=== PATIENT | female | born 1935 | race African-American/Black ===

== ENCOUNTER 2019-03-18 12:21 | Inpatient (IN) | payer MEDICARE ==
[~2019-03-18] VITALS: Ht 157.5 cm; Wt 51.7 kg
--- NOTE | 2019-03-18 12:25 | NUR ---
SEEN AND EXAMINED BY DR. RODAS.
[2019-03-18] MEDS ORDERED: IV NS 0.9% 1,000 ML BAG IV ONE (12:30)
--- NOTE | 2019-03-18 12:33 | NUR ---
PT WHITNEY Juárez From [facility] "Fever x2days" PT IS AAOX0, NOT IN RESPIRATORY DISTRESS, HOOKED TO BEHAVIORAL HEALTH COUNSELOR, V/S STABLE, KEPT RESTED AND COMFORTABLE, WILL CONTINUE TO MONITOR.
--- NOTE | 2019-03-18 12:35 | NUR ---
IV LINE ESTABLISHED, LABS DRAWNED AND SENT TO LAB.
--- NOTE | 2019-03-18 12:40 | NUR ---
INFORMATION ASSOC AT BEDSIDE FOR XRAY.
[2019-03-18 12:44] LABS: BASOPHILS # (AUTO) 0.1 /CMM (0.0-0.2); BASOPHILS % (AUTO) 0.3 % (0.0-2.0); EOSINOPHILS % (AUTO) 0.1 % (0.0-6.0); HEMATOCRIT 23 % (33-45); HEMOGLOBIN 7.7 g/dL (11.5-14.8); LYMPHOCYTES # (AUTO) 1.3 /CMM (0.8-4.8); LYMPHOCYTES % (AUTO) 7.2 % (20.0-44.0); MEAN CORPUSCULAR HGB CONC 33 g/dl (31.0-36.0); MEAN CORPUSCULAR VOLUME 84 fL (82-100); MONOCYTES # (AUTO) 1.6 /CMM (0.1-1.30); NEUTROPHILS # (AUTO) 14.5 /CMM (1.8-8.9); NEUTROPHILS % (AUTO) 83.4 % (43.0-81.0); PLATELET COUNT (AUTO) 306 /CMM (150-450); RED BLOOD CELL COUNT(AUTO) 2.78 MIL/uL (4.0-5.2); WHITE BLOOD COUNT (AUTO) 17.4 K/uL (4.3-11.0)
[2019-03-18 12:53] LABS: CALCIUM, SERUM 8.9 mg/dL (8.5-10.1); CARBON DIOXIDE 26 mmol/L (21-32); CHLORIDE 97 mmol/L (98-107); CREATININE 0.9 mg/dL (0.6-1.3); GLUCOSE 265 mg/dL (74-106); POTASSIUM 6.1 mmol/L (3.5-5.1); SODIUM SERUM 130 mmol/L (136-145); UREA NITROGEN, BLOOD 35 mg/dL (7-18)
[2019-03-18 12:59] LABS: ALANINE AMINOTRANSFERASE 43 U/L (12-78); ALKALINE PHOSPHATASE 117 U/L (46-116); ASPARTATE AMINOTRANSFERASE 55 U/L (15-37); BILIRUBIN,TOTAL 0.4 mg/dL (0.2-1.0); TOTAL PROTEIN, SERUM 7.9 g/dL (6.4-8.2)
--- NOTE | 2019-03-18 13:14 | NUR ---
URINE SPECIMEN COLLECTED VIA STRAIGHT CATH AND SENT TO LAB.
[2019-03-18 13:26] LABS: APPEARANCE,URINE Cloudy (CLEAR); BILIRUBIN,URINE Negative (NEGATIVE); BLOOD, URINE Trace-intact Ery/uL (NEGATIVE); COLOR,URINE Yellow (YELLOW); KETONES,URINE Negative (NEGATIVE); LEUKOCYTE ESTERASE ,URINE Small (NEGATIVE); NITRITE, URINE Negative (NEGATIVE); PROTEIN,URINE Negative (NEGATIVE); UGLUCOSE 250 MG/DL mg/dL (NEGATIVE); UROBILINOGEN,URINE 0.2 EU/dL (0.2)
[2019-03-18 13:37] LABS: BACTERIA,URINE Moderate /HPF (None Seen); SQUAMOUS EPITHELIAL CELL,UR Many /HPF (None Seen)
[2019-03-18] MEDS ORDERED: MEMA10TA PO (13:48)
[2019-03-18] MEDS ORDERED: ACET650S13 RC (13:48)
[2019-03-18] MEDS ORDERED: AMLO10TA7 PO (13:48)
[2019-03-18] MEDS ORDERED: BISA10SU8 RC (13:48)
[2019-03-18] MEDS ORDERED: DONE5TAB34 PO (13:48)
[2019-03-18] MEDS ORDERED: INSU100I14 SQ (13:48)
[2019-03-18] MEDS ORDERED: LORA0.5T PO (13:48)
[2019-03-18] MEDS ORDERED: POLY255P19 PO (13:48)
[2019-03-18] MEDS ORDERED: IPRA3AMP23 IH ×2 (13:48)
[2019-03-18] MEDS ORDERED: HYOS0.1273 SL (13:48)
[2019-03-18] MEDS ORDERED: MORP10SO SL (13:48)
[2019-03-18] MEDS ORDERED: ACET325T80 PO (13:48)
[2019-03-18] MEDS ORDERED: TRAM50TA2 PO (13:48)
[2019-03-18] MEDS ORDERED: CLIN300C11 PO (13:48)
[2019-03-18] MEDS ORDERED: PROC25SU2 RC (13:48)
[2019-03-18] MEDS ORDERED: LACT1TAB20 PO (13:48)
[2019-03-18] MEDS ORDERED: ACET325T53 PO (13:48)
[2019-03-18] MEDS ORDERED: CEFTRIAXONE 1 G VIAL ONE (14:00)
[2019-03-18] MEDS ORDERED: CEFTRIAXONE 1GM BAG (ER ONLY) 50 ML IV ONE (14:00)
[2019-03-18] MEDS ORDERED: INSULIN REGULAR, HUMAN 100 UNIT/ML 10 ML VIAL IV ONE (14:30)
[2019-03-18] MEDS ORDERED: DEXTROSE 50%-WATER 50 ML DISP.SYRIN IV ONE (14:30)
[2019-03-18] MEDS ORDERED: ALBUTEROL FS 2.5 MG/3 ML VIAL.NEB NEB ONE (14:30)
[2019-03-18] MEDS ORDERED: SODIUM BICARBONATE SYR 50 MEQ/50 ML DISP.SYRIN IV ONE (14:30)
--- NOTE | 2019-03-18 15:10 | NUR ---
REPORT GIVEN TO TAMMY SELBY FOR [facility].
[2019-03-18] MEDS ORDERED: DEXTROSE 50%-WATER 50 ML DISP.SYRIN ONE (15:16)
[2019-03-18] MEDS ORDERED: SODIUM BICARBONATE SYR 50 MEQ/50 ML DISP.SYRIN ONE (15:16)
[2019-03-18] MEDS ORDERED: INSULIN REGULAR, HUMAN 100 UNIT/ML 10 ML VIAL ONE (15:16)
[2019-03-18] MEDS ORDERED: ALBUTEROL FS 2.5 MG/3 ML VIAL.NEB ONE (15:20)
--- NOTE | 2019-03-18 15:26 | NUR ---
RT AT BEDSIDE FOR BREATHING TREATMENT.
[2019-03-18 16:00] VITALS: BP 113/42
[2019-03-18] MEDS ORDERED: HYDROCODONE/APAP 10/325MG 1 EA TABLET PO PRN (16:00)
[2019-03-18] MEDS ORDERED: TRAMADOL HCL 50 MG TABLET PO PRN (16:00)
[2019-03-18] MEDS ORDERED: ONDANSETRON HCL/PF 4 MG/2 ML VIAL IVP PRN (16:00)
[2019-03-18] MEDS ORDERED: Z GUARD REMEDY 2 OZ OINT TP PRN (16:00)
[2019-03-18] MEDS ORDERED: DEXTROSE 50%-WATER 50 ML DISP.SYRIN IV PRN (16:00)
[2019-03-18] MEDS ORDERED: POLYETHYLENE GLYCOL 3350 17 GM POWD.PACK PO PRN (16:00)
[2019-03-18] MEDS ORDERED: LORAZEPAM 0.5 MG TABLET PO PRN (16:00)
[2019-03-18] MEDS ORDERED: ACETAMINOPHEN 325 MG TABLET PO PRN (16:00)
[2019-03-18] MEDS ORDERED: ENOXAPARIN SODIUM 40 MG/0.4 ML DISP.SYRIN SQ SCH (16:00)
[2019-03-18] MEDS ORDERED: HYOSCYAMINE SULFATE 0.125 MG TAB.SUBL SL PRN (16:00)
--- NOTE | 2019-03-18 16:30 | NUR ---
RN NOTE RECEIVED PT FROM ER ,ON BED, CONTRACTED, AOX0, NONVERBAL, FOLLOWS SOME SIMPLE VERBAL COMMANDS, ON ORDER TAKERS SUPERVISOR ST 115, SKIN WARM DRY, IV INTACT, DIAPER ON, LEFT AND RIGHT FEET WOUNDS AND SACRAL WOUND NOTED, PT ABLE TO TAKE PO INTAKE PER CAREGIVER. CONSERVATOR ANATT VISITED PT, GENERAL INTERNIST AND PHYSICIAN LEADER AT BEDSIDE, VS STABLE, SAFETY MEASURES IN PLACE, CALL LIGHT WITHIN REACH, WILL CONTINUE TO MONITOR.
[2019-03-18] MEDS: IV NS 0.9% 1,000 ML IV PRN (17:51)
[2019-03-18] MEDS: BLOOD SUGAR DIAGNOSTIC 1 EACH STRIP IN SCH ×2 (17:51→21:28)
[2019-03-18] MEDS: MEMANTINE HCL 5 MG TABLET PO SCH (17:55)
[2019-03-18] MEDS: INSULIN REGULAR, HUMAN 100 UNIT/ML 3 ML VIAL SQ PRN ×2 (17:57→21:29)
--- NOTE | 2019-03-18 19:40 | NUR ---
RN NOTES, RECEIVED PATIENT WITH EYES SEMI OPEN, BUT AROUSABLE TO VERBAL AND TACTILE STIMULI, NONVERBAL BUT NODS HEAD YES/NO TO SIMPLE QUESTIONS, AT RA BREATHING EVEN AND UNLABORED, NO S/S SOB/ ACUTE DISTRESS NOTED AT THIS TIME, SINUS TACHY IN THE EQUIPMENT PROCESSER STORAGE, HR 101 AT THIS TIME, IV ACCESS IN LEFT HAND, INFUSING 0.9% NS AT 100ML/HR, NO S/S OF INFILTRATION OR ABNORMALITY NOTED, INFUSING WELL AND PATIENT TOLERATED WELL, DRY AND CLEAN, ALL NEEDS PROVIDED, CAREGIVER AT BEDSIDE, BED LOCKED AND IN LOWEST POSITION, BILATERAL 1/2 S/R OF BED UP, CALL LIGHT W/I REACH, WILL CONTINUE TO MONITOR CLOSELY
[2019-03-18 20:00] VITALS: BP 129/43
[2019-03-19] VITALS: BP 126/52
[2019-03-19 04:00] VITALS: BP 108/42
[2019-03-19] MEDS: IV NS 0.9% 1,000 ML IV PRN (04:45)
--- NOTE | 2019-03-19 06:51 | NUR ---
RN NOTES, PATIENT SLEEPING AT THIS TIME, BUT AROUSABLE TO VERBAL AND TACTILE STIMULI, NONVERBAL PER REPORT,BUT PATIENT ABLE TO SAY SOME WORDS AND ALSO NODS HEAD YES/NO TO SIMPLE QUESTIONS, AT RA BREATHING EVEN AND UNLABORED, NO S/S SOB/ ACUTE DISTRESS NOTED DURING THE NIGHT, AND NO SIGNIFICANT CHNAGE IN CONDITION, IV ACCESS IN LEFT HAND, INFUSING 0.9% NS AT 100ML/HR, NO S/S OF INFILTRATION OR ABNORMALITY NOTED, INFUSING WELL AND PATIENT TOLERATED WELL, DRY AND CLEAN, ALL NEEDS PROVIDED, CAREGIVER AT BEDSIDE, BED LOCKED AND IN LOWEST POSITION, BILATERAL 1/2 S/R OF BED UP, CALL LIGHT W/I REACH, WILL ENDORSE CONTINUITY OF CARE TO ONCOMING NURSE.
[2019-03-19 07:00] LABS: BASOPHILS % (AUTO) 0.4 % (0.0-2.0); EOSINOPHILS % (AUTO) 0.1 % (0.0-6.0); HEMATOCRIT 24 % (33-45); HEMOGLOBIN 7.8 g/dL (11.5-14.8); LYMPHOCYTES # (AUTO) 1.2 /CMM (0.8-4.8); LYMPHOCYTES % (AUTO) 8.8 % (20.0-44.0); MEAN CORPUSCULAR HGB CONC 33 g/dl (31.0-36.0); MEAN CORPUSCULAR VOLUME 83 fL (82-100); MONOCYTES # (AUTO) 1.5 /CMM (0.1-1.30); MONOCYTES % (AUTO) 10.5 % (2.0-12.0); NEUTROPHILS # (AUTO) 11.2 /CMM (1.8-8.9); NEUTROPHILS % (AUTO) 80.2 % (43.0-81.0); PLATELET COUNT (AUTO) 224 /CMM (150-450); RED BLOOD CELL COUNT(AUTO) 2.88 MIL/uL (4.0-5.2); WHITE BLOOD COUNT (AUTO) 13.9 K/uL (4.3-11.0)
--- NOTE | 2019-03-19 07:15 | NUR ---
RN OPENING NOTES RECEIVED BEDSIDE REPORT, PATIENT NON VERBAL. MEAT GRINDER ON BEDSIDE. ON TELE MONITOR SR. ON ROOM AIR. HAS LEFT HAND #18 WITH NS RUNNING AT 100 ML/HR. BED LOCKED AND IN LOWEST POSITION. CALL LIGHT WITHIN REACH. WILL CONTINUE TO MONITOR
[2019-03-19 07:19] LABS: ALANINE AMINOTRANSFERASE 51 U/L (12-78); ALBUMIN 1.7 g/dL (3.4-5.0); ALKALINE PHOSPHATASE 117 U/L (46-116); ASPARTATE AMINOTRANSFERASE 54 U/L (15-37); BILIRUBIN,TOTAL 0.3 mg/dL (0.2-1.0); CALCIUM, SERUM 8.7 mg/dL (8.5-10.1); CARBON DIOXIDE 26 mmol/L (21-32); CHLORIDE 104 mmol/L (98-107); CREATININE 0.6 mg/dL (0.6-1.3); GLUCOSE 125 mg/dL (74-106); MAGNESIUM 2.1 mg/dL (1.8-2.4); PHOSPHORUS 2.9 mg/dL (2.5-4.9); POTASSIUM 3.9 mmol/L (3.5-5.1); SODIUM SERUM 137 mmol/L (136-145); TOTAL PROTEIN, SERUM 6.9 g/dL (6.4-8.2); UREA NITROGEN, BLOOD 17 mg/dL (7-18)
[2019-03-19] MEDS ORDERED: PANTOPRAZOLE 40 MG TABLET.DR PO SCH (07:30)
[2019-03-19] MEDS: INSULIN REGULAR, HUMAN 100 UNIT/ML 3 ML VIAL SQ PRN ×2 (07:50→11:52)
[2019-03-19 08:00] VITALS: BP 121/41
[2019-03-19] MEDS: BLOOD SUGAR DIAGNOSTIC 1 EACH STRIP IN SCH ×2 (08:02→11:45)
[2019-03-19] MEDS: MEMANTINE HCL 5 MG TABLET PO SCH (08:25)
--- NOTE | 2019-03-19 08:35 | NUR ---
RN NOTES WOUND CARE NURSE ON BEDSIDE. CHECKED PATIENT'S SKIN. WOUND CARE WILL BE ORDERED.
--- NOTE | 2019-03-19 08:40 | NUR ---
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 RECOMMEND DPM AND SURGICAL CONSULTS. DR HASTINGS AND DR JANIYA NEW NOTIFIED OF CONSULT REQUESTS. PT ON TRUE ISOFLEX LOW AIRLOSS BED. ALL SKIN PROTECTION AND WOUND CARE RECOMMENDATIONS DISCUSSED WITH NURSING STAFF. DEFER TO DPM FOR LOWER EXTREMITIES. WILL SEE PRN. COTTO IN AGREEMENT WITH PLAN OF CARE. CURRENT NATHALIA SCORE IS 7. DIETARY CONSULT IN PLACE. Addendum: 03/19/19 at 0843 by DELANEY MOONEY WNDNU Amended: Links added.
[2019-03-19 09:00] VITALS: BP 121/41
[2019-03-19] MEDS ORDERED: DONEPEZIL 5 MG TABLET PO SCH (09:00)
[2019-03-19] MEDS ORDERED: HYDROGEL DRESSING 90 GM TUBE TP SCH (09:00)
[2019-03-19] MEDS ORDERED: HYDROGEL DRESSING 90 GM TUBE TP PRN (09:00)
[2019-03-19] MEDS ORDERED: AMLODIPINE BESYLATE 10 MG TABLET PO SCH (09:00)
[2019-03-19 10:38] LABS: IRON, SERUM 16 ug/dl (50-175)
[2019-03-19 11:03] LABS: TOTAL IRON BINDING CAPACITY 150 ug/dl (250-450)
[2019-03-19] MEDS ORDERED: CEFT1VIA15 IV (12:33)
--- NOTE | 2019-03-19 13:00 | NUR ---
RN NOTES DC ORDER FOR TODAY, PER DISTRICT MEDICAL EXAMINER PATIENT WILL BE PICKED UP AT 1500. CAREGIVER ON BEDSIDE
[2019-03-19 13:15] LABS: CHOLESTEROL 141 mg/dL (<200); HDL CHOLESTEROL 20 mg/dL (40-60); LDL 94 mg/dL (0-99); THYROID STIMULATING HORMONE 1.115 uIU/mL (0.358-3.74); TRIGLYCERIDES 75 mg/dL (30-150)
[2019-03-19] MEDS ORDERED: CEFTRIAXONE 1 G in IV D5W 50 ML IV SCH (14:00)
[2019-03-19 16:00] VITALS: BP 129/41
--- NOTE | 2019-03-19 17:00 | NUR ---
OUTSOLE CEMENTER NOTES PATIENT PICKED UP BY AMBULANCE. CAREGIVER ON BEDSIDE. PATIENT MEDICALLY STABLE. VSS. BELONGINGS LIST SIGNED. WOUND PICTURES IN CHART
== END 2019-03-19 17:00 | disposition hospice, home (50) | DRG 872 ==
LOC: ER 12:21 → TELE1 14:55 → MEDSG1 03-19 10:05
PROVIDERS: ADMIT Nurse Practitioner Acute Care; ATTEND Nurse Practitioner Acute Care
DX: A41.9 Sepsis, unspecified organism (principal); E87.1 Hypo-osmolality and hyponatremia; N39.0 Urinary tract infection, site not specified; E87.5 Hyperkalemia; E11.65 Type 2 diabetes mellitus with hyperglycemia; E88.09 Other disorders of plasma-protein metabolism, not elsewhere classified; D63.8 Anemia in other chronic diseases classified elsewhere; G89.4 Chronic pain syndrome; F03.90 Unspecified dementia, unspecified severity, without behavioral disturbance, psychotic disturbance, mood disturbance, and anxiety; R74.0 Nonspecific elevation of levels of transaminase and lactic acid dehydrogenase [LDH]; J45.909 Unspecified asthma, uncomplicated; E86.1 Hypovolemia; Z79.4 Long term (current) use of insulin
CPT/HCPCS: 36415; 71045-TC; 80048-TC; 80053-TC; 80061-TC; 80076-TC; 81000-TC; 82962-TC; 83540-TC; 83605-TC; 83735-TC; 84100-TC; 84443-TC; 84484-TC; 85025-TC; 85045-TC; 85730-TC; 86850-TC; 87040-TC; 87081-TC; 87086-TC; 87186-TC; 93307-TC; 94799-TC; 97530-TC; A6248; A6253; A6403; G0378; J0696; J1650; J1815; J3490; J7030; J7060